=== PATIENT | female | born 1940 | race Caucasian/White ===

== ENCOUNTER 2024-02-26 10:34 | Emergency (ER) | payer MEDICARE, OTHER, SELFPAY ==
[2024-02-26 10:56] VITALS: BP 185/106
[2024-02-26 11:25] VITALS: BMI 34.5
[2024-02-26 11:48] LABS: Hematocrit 38.8 % (37.0-47.0); Hemoglobin 12.9 g/dL (12.0-16.0); Mean Corp Hgb Conc. 33.2 g/dL (33.0-37.0); Mean Corpuscular Hgb 30.8 pg (27.0-31.0); Mean Corpuscular Volume 92.6 fL (81.0-99.0); Mean Platelet Volume 9.1 fL (7.4-10.4); Platelet Count 283 10^3/uL (130-400); Red Blood Cell Count 4.19 10^6/uL (4.20-5.40); Red Cell Dist. Width 13.2 % (11.5-14.5); White Blood Cell Count 9.3 10^3/uL (4.8-10.8)
[2024-02-26 11:59] LABS: ALT (SGPT) 25 U/L (0-35); AST (SGOT) 29 U/L (14-36); Albumin 4.4 g/dl (3.5-5.0); Alkaline Phosphatase 116 U/L (38-126); Blood Urea Nitrogen 20 mg/dl (7-17); Calcium 10.4 mg/dl (8.4-10.2); Carbon Dioxide 26 mmol/L (22-30); Chloride 104 mmol/L (98-107); Estimated Creatinine Clearance 77 ml/min; Glucose 91 mg/dl (70-99); Potassium 4.2 mmol/L (3.5-5.1); Sodium 140 mmol/L (135-145); Total Bilirubin 0.6 mg/dl (0.2-1.3); Total Protein 6.6 g/dl (6.3-8.2); eGFR > 60.00
--- NOTE | 2024-02-26 12:06 | ED.GENMED ---
History of Present Illness
General
Chief Complaint: Swelling
Time Seen by Provider: 02/26/24 11:03
History of Present Illness
History of Present Illness:
83-year-old female presents to the emergency department due to lower extremity edema that has been worsening over the past several weeks. She has postpolio syndrome and difficulty with ambulation, feels that when she increases her diuretic she has
difficulty making it to the restroom. She is currently on 20 mg a day. Denies any shortness of breath or leg numbness
Review of Systems
Review of Systems
Allergies reviewed?: Yes
All Other Systems: ROS reviewed and negative except as documented in HPI and ROS
Phy Exam
Physical Exam
Physical Exam:
GEN: Well appearing, NAD, WDWN
HEENT: Oral mucosa moist, no scleral icterus
Cardiac: Regular rate
Lung: No respiratory distress, no tachypnea
MSK: No gross deformity or injuries. Diffuse circumferential edema, 2+ bilateral lower extremities, strong pedal pulses
Skin: Good color, no pallor or jaundice, no rashes
Neuro: AO x3, moves all extremities freely
Psych: Calm, cooperative
Scores
Heart Failure Risk
Heart Failure Risk Score: Not Applicable
Course
Orders/Labs/Results
Orders:
Orders
02/26/24 11:39
Complete Blood Count/With Diff Urgent
Comprehensive Metabolic Panel Urgent
Pro-BNP [NT-proBNP] Stat
02/26/24 12:05
Furosemide [Lasix] 40 mg IV NOW STA
02/26/24 12:46
Case Management Consult ONCE
Case Management Consult: Group Home Placement
Pt Eval And Treat Urgent
Treatment: difficulty ambulating due to BLE edema/post-polio syndrome
Activity Level: As Tolerated
Abnormal Lab Results
02/26/24
11:39
RBC 4.19 L 10^6/uL
(4.20-5.40)
Absolute Lymphs (auto) 4.8 H 10^3/uL
(1.2-3.4)
Neutrophils % 39.9 L %
(42.2-75.2)
Lymphocytes % 51.5 H %
(20.5-51.1)
BUN 20 H mg/dl
(7-17)
Creatinine 0.4 L mg/dL
(0.6-1.0)
Calcium 10.4 H mg/dl
(8.4-10.2)
02/26/24 11:39
02/26/24 11:39
Vital Signs
Initial and Last Documented VS:
Initial Vital Signs
Temp Pulse Resp BP Pulse Ox
98.4 F 93 16 185/106 98
02/26/24 10:56 02/26/24 10:56 02/26/24 10:56 02/26/24 10:56 02/26/24 10:56
Last Documented Vital Signs
Temp Pulse Resp BP Pulse Ox
98.4 F 90 21 120/74 98
02/26/24 10:56 02/26/24 16:30 02/26/24 16:30 02/26/24 15:00 02/26/24 10:56
MDM/Problems Addressed
MDM/Problems Addressed:
Patient's labs are unremarkable, fortunately this is a dilemma of poor functionality with the need for increasing Lasix. She was evaluated by PT and case management and will be placed in short-term rehab due to her immobility. Will start her on a
40 mg dose of Lasix daily for the next 3 days and 20 mg thereafter
*Critical Care Note
Total Time (30-74mins, 75-104mins- exclusive of procedures): Not Applicable
ED Attending Note
-
Portions of this chart may have been created with voice recognition software.� Occasional wrong word or��sound alike� substitutions may have occurred due to the inherent limitations of voice recognition software.
Discharge Plan
Departure
Patient Disposition: Home (Routine Discharge)
Date of Disposition: 02/26/24
Time of Disposition: 15:24
Patient with high blood pressure during this ER visit?: No
Discharge Problem:
Bilateral edema of lower extremity
Instructions: Dependent Edema (DC)
Prescriptions:
New
furosemide [Lasix] 20 mg tablet
20 mg PO DAILY Qty: 30 0RF
Rx Instructions:
40mg PO qd x 3 days, then 20mg po qd
Referrals:
Sharee Powell CRNP [Family Provider] -
Activity Restrictions/Additional Instructions:
Increase lasix to 40mg for 3 days (starting 02/27/2024)
then return to 20mg lasix daily
Interventions
Interventions:
*Risk Screen - Suicide Last Done: 02/26/24 10:56
*General Assessment Last Done: 02/26/24 12:13
*Neglect/Abuse Screening Last Done: 02/26/24 10:56
*ED COVID-19 Vaccine History Last Done: 02/26/24 11:24
*Nursing Disposition Last Done: 02/26/24 16:48
ED- Cardiac Assessment Last Done: 02/26/24 11:23
ED- Pulmonary Assessment Last Done: 02/26/24 11:23
ED-Skin Assessment Last Done: 02/26/24 11:24
Discharge Date and Time
Discharge Date/Time: 02/26/24 16:48
Print Language: BENINESE
[2024-02-26 12:08] LABS: NT-proBNP 52.7 pg/ml
[2024-02-26 12:21] LABS: % Basophils 0.6 % (0-2); % Immature Granulocytes 0.2 % (0-0.5); % Lymphocytes 51.5 % (20.5-51.1); % Monocytes 5.8 % (1.7-9.3); % Neutrophils 39.9 % (42.2-75.2); Absolute Basophils 0.1 10^3/uL (0-0.2); Absolute Eosinophils 0.2 10^3/uL (0-0.7); Absolute Lymphocytes 4.8 10^3/uL (1.2-3.4); Absolute Monocytes 0.5 10^3/uL (0.1-0.6); Absolute Neutrophils 3.7 10^3/uL (1.4-6.5); Nucleated Red Blood Cells % 0 %
[2024-02-26] MEDS: LASIX 40 MG IV (12:44)
[2024-02-26 12:45] VITALS: BP 111/64
[2024-02-26 13:00] VITALS: BP 109/77
[2024-02-26 15:00] VITALS: BP 120/74
--- NOTE | 2024-02-26 15:30 | CM ---
ED CM consult for SNF placement
Bedside meeting with pt and dtr
SNF recommended by PT
Pt from [facility] and in agreement with SNF
Call with admissions/Beatriz [phone]
Private pay rate $477 day as pt without qualifying stay
Per Chelsea Campbell, would be eligible for [employer] waiver if admitted only
Referral and PASRR faxed to [facility] [phone]
Transport discussed- [facility]
Dtr will drive her
Nursing to call report
Discharge Disposition- [facility] SNF via dtr transport
Nursing report phone- [phone] option 1 Fax- [phone]
== END 2024-02-26 16:48 | disposition home or self-care (01) ==
LOC: EMR 10:34
PROVIDERS: EMERGENCY PHYSICIAN Emergency Medicine; FAMILY PHYSICIAN Nurse Practitioner
DX: R60.0 Localized edema (principal)
CPT/HCPCS: 99284; 96374; 80053; 83880; 85025